=== PATIENT | female | born 1950 | race Two or more races ===

== ENCOUNTER → 2017-06-08 | Outpatient (CLI) | payer MEDICARE, OTHER ==
[~2017-06-08] MED LIST: LEV50T PO; NITR-48 PO; PAR20T PO
[2017-06-08 11:12] LABS: Basophils # (auto) 0 uL; Basophils % (auto) 0.6 % (0.0-2.0); Eosinophils # (auto) 0.1 uL; Eosinophils % (auto) 0.9 % (0.0-7.0); Hematocrit 39.9 % (36.0-46.0); Hemoglobin 13.1 g/dL (12.2-16.2); Lymphocytes # (auto) 3.8 uL; Lymphocytes % (auto) 48.2 % (10.0-50.0); Mean Corpuscular Hemoglobin 30.2 pg (28.0-32.0); Mean Corpuscular Hgb Conc. 32.8 g/dL (32.0-36.0); Mean Corpuscular Volume 91.9 fL (80.0-100.0); Mean Platelet Volume 7.6 fL (6.9-10.8); Monocytes # (auto) 0.5 uL; Monocytes % (auto) 5.9 % (0.0-12.0); Neutrophils # (auto) 3.5 uL; Neutrophils % (auto) 44.4 % (37.0-80.0); Nucleated Red Blood Cells % 0.2 %; Platelet Count (auto) 292 10^3/uL (140-450); Red Cell Distribution Width 14.7 % (11.8-14.3); White Blood Cell 7.9 10^3/uL (4.4-10.8)
[2017-06-08 11:21] LABS: Urine Bilirubin Negative (Negative); Urine Blood 1+ /uL (Negative); Urine Color Yellow (Yellow); Urine Glucose Normal (Normal); Urine Ketone Negative (Negative); Urine Mucus FEW (None Seen); Urine Nitrite Negative (Negative); Urine RBC 3 /hpf (0 - 4); Urine Squamous Epithelial Cell FEW /hpf (<5); Urine Urobilinogen Normal (Negative)
[2017-06-08 11:28] LABS: Albumin 3.8 g/dL (3.4-5.0); Bilirubin, Direct 0.1 mg/dL (0-0.2); Bilirubin, Total 0.5 mg/dL (0.2-1.0); Total Protein 7.3 g/dL (6.4-8.2)
== END | disposition home or self-care (01) ==
LOC: LAB 10:36
PROVIDERS: ATTEND Family Medicine
DX: F03.90 Unspecified dementia, unspecified severity, without behavioral disturbance, psychotic disturbance, mood disturbance, and anxiety (principal); F32.9 Major depressive disorder, single episode, unspecified; E78.4 Other hyperlipidemia; E55.9 Vitamin D deficiency, unspecified; Z86.19 Personal history of other infectious and parasitic diseases
CPT/HCPCS: 36415; 80061; 80076; 81001; 82306; 84443; 85025

== ENCOUNTER → 2017-12-11 | Outpatient (CLI) | payer MEDICARE, OTHER ==
[2017-12-11 10:27] LABS: Basophils # (auto) 0 uL; Basophils % (auto) 0.4 % (0.0-2.0); Eosinophils # (auto) 0.1 uL; Eosinophils % (auto) 0.8 % (0.0-7.0); Hematocrit 40.3 % (36.0-46.0); Hemoglobin 13.4 g/dL (12.2-16.2); Lymphocytes # (auto) 2.9 uL; Lymphocytes % (auto) 42.7 % (10.0-50.0); Mean Corpuscular Hemoglobin 30.6 pg (28.0-32.0); Mean Corpuscular Hgb Conc. 33.2 g/dL (32.0-36.0); Mean Corpuscular Volume 92.2 fL (80.0-100.0); Monocytes # (auto) 0.4 uL; Monocytes % (auto) 5.8 % (0.0-12.0); Neutrophils # (auto) 3.4 uL; Neutrophils % (auto) 50.3 % (37.0-80.0); Nucleated Red Blood Cells % 0.1 %; Platelet Count (auto) 256 10^3/uL (140-450); Red Blood Cells 4.37 10^6/uL (4.0-5.20); Red Cell Distribution Width 13.7 % (11.8-14.3); White Blood Cell 6.8 10^3/uL (4.4-10.8)
[2017-12-11 10:56] LABS: Urine Bacteria FEW /hpf (None Seen); Urine Blood 1+ /uL (Negative); Urine Mucus FEW (None Seen); Urine Specific Gravity 1.016 (1.001-1.035); Urine WBC 1 /hpf (0 - 5)
[2017-12-11 11:08] LABS: Albumin 3.9 g/dL (3.4-5.0); BUN/Creatinine Ratio 17.8; Bilirubin, Total 0.4 mg/dL (0.2-1.0); Calcium 9.1 mg/dL (8.5-10.1); Potassium 4.5 mmol/L (3.5-5.1); Total Protein 7.3 g/dL (6.4-8.2)
== END | disposition home or self-care (01) ==
LOC: LAB 09:49
PROVIDERS: ATTEND Family Medicine
DX: E03.9 Hypothyroidism, unspecified (principal); E78.4 Other hyperlipidemia; N18.2 Chronic kidney disease, stage 2 (mild)
CPT/HCPCS: 36415; 80053; 80061; 81001; 84443; 85025

== ENCOUNTER → 2018-07-25 | Outpatient (CLI) | payer MEDICARE, OTHER ==
[~2018-07-25] MED LIST changes: -NITR-48 PO; +NITR100C44 PO
== END | disposition home or self-care (01) ==
LOC: LAB 09:21
PROVIDERS: ATTEND Specialist
DX: R10.9 Unspecified abdominal pain (principal)
CPT/HCPCS: 36415; 82565; 84520

== ENCOUNTER → 2018-09-09 | Outpatient (CLI) | payer MEDICARE, OTHER ==
[2018-09-09 11:30] LABS: Urine Bacteria FEW /hpf (None Seen); Urine Blood 1+ /uL (Negative); Urine Mucus FEW (None Seen); Urine Specific Gravity 1.019 (1.001-1.035); Urine WBC 1 /hpf (0 - 5)
== END | disposition home or self-care (01) ==
LOC: LAB 10:46
PROVIDERS: ATTEND Obstetrics & Gynecology
DX: N39.0 Urinary tract infection, site not specified (principal)
CPT/HCPCS: 81001; 87086

== ENCOUNTER → 2019-04-21 | Outpatient (CLI) | payer MEDICARE, OTHER ==
[2019-04-21 10:57] LABS: Basophils # (auto) 0.1 uL; Basophils % (auto) 0.8 % (0.0-2.0); Eosinophils # (auto) 0.1 uL; Eosinophils % (auto) 1.8 % (0.0-7.0); Hematocrit 42.2 % (36.0-46.0); Lymphocytes # (auto) 2.8 uL; Lymphocytes % (auto) 38.8 % (10.0-50.0); Mean Corpuscular Hemoglobin 30.7 pg (28.0-32.0); Mean Corpuscular Hgb Conc. 33.1 g/dL (32.0-36.0); Mean Corpuscular Volume 92.8 fL (80.0-100.0); Monocytes # (auto) 0.5 uL; Monocytes % (auto) 6.5 % (0.0-12.0); Neutrophils # (auto) 3.8 uL; Neutrophils % (auto) 52.1 % (37.0-80.0); Platelet Count (auto) 269 10^3/uL (140-450); Red Blood Cells 4.54 10^6/uL (4.0-5.20); Red Cell Distribution Width 13.8 % (11.8-14.3); White Blood Cell 7.3 10^3/uL (4.4-10.8)
[2019-04-21 11:27] LABS: Albumin 3.6 g/dL (3.4-5.0); BUN/Creatinine Ratio 17.6; Calcium 9.1 mg/dL (8.5-10.1); Potassium 3.8 mmol/L (3.5-5.1)
[2019-04-21 11:32] LABS: Bilirubin, Total 0.5 mg/dL (0.2-1.0)
== END | disposition home or self-care (01) ==
LOC: LAB 10:12
PROVIDERS: ATTEND Family Medicine
DX: E55.9 Vitamin D deficiency, unspecified (principal); E03.9 Hypothyroidism, unspecified; F33.1 Major depressive disorder, recurrent, moderate; N39.41 Urge incontinence; M54.5 Low back pain
CPT/HCPCS: 36415; 80053; 80061; 82306; 84443; 85025

== ENCOUNTER → 2019-06-16 | Day surgery (SDC) | payer MEDICARE, OTHER ==
[2019-06-12 10:36] LABS: Basophils # (auto) 0.1 uL; Basophils % (auto) 0.7 % (0.0-2.0); Eosinophils # (auto) 0.1 uL; Hematocrit 40.2 % (36.0-46.0); Hemoglobin 13.3 g/dL (12.2-16.2); Lymphocytes # (auto) 3.1 uL; Lymphocytes % (auto) 36.9 % (10.0-50.0); Mean Corpuscular Hemoglobin 30.6 pg (28.0-32.0); Mean Corpuscular Hgb Conc. 33.1 g/dL (32.0-36.0); Mean Corpuscular Volume 92.6 fL (80.0-100.0); Monocytes # (auto) 0.5 uL; Monocytes % (auto) 6.5 % (0.0-12.0); Neutrophils # (auto) 4.6 uL; Neutrophils % (auto) 54.9 % (37.0-80.0); Nucleated Red Blood Cells % 0.1 %; Platelet Count (auto) 309 10^3/uL (140-450); Red Blood Cells 4.34 10^6/uL (4.0-5.20); Red Cell Distribution Width 14.5 % (11.8-14.3); White Blood Cell 8.3 10^3/uL (4.4-10.8)
[2019-06-12 11:03] LABS: Urine Bacteria NONE SEEN /hpf (None Seen); Urine Blood TRACE /uL (Negative); Urine Mucus FEW (None Seen); Urine Specific Gravity 1.018 (1.001-1.035); Urine WBC 1 /hpf (0 - 5)
[2019-06-12 11:06] LABS: INR 1.01 (0.9-1.15); Partial Thromboplastin Time 28.1 sec (23.64-32.05)
[2019-06-12 11:24] LABS: Albumin 3.8 g/dL (3.4-5.0); Calcium 8.6 mg/dL (8.5-10.1); Potassium 3.4 mmol/L (3.5-5.1)
[2019-06-12 11:28] LABS: Bilirubin, Total 0.5 mg/dL (0.2-1.0); Total Protein 7.5 g/dL (6.4-8.2)
[~2019-06-16] VITALS: Ht 167.6 cm; Wt 69.4 kg
[~2019-06-16] MED LIST changes: +ALPR0.5T7 PO; +ASPI-404 PO; +DexAMETHasone SOD PHOS 10MG/1ML VIAL INJ ONE; +HYDR-4833 PO; +HYDROmorphone HCL 2 MG/ML VL IV PRN; +KETOROLAC TROMETH 30 MG/ML 1ML VIAL IV ONE; +LABETALOL HCL 5 MG/ML 4ML SYRINGE IV PRN; -LEV50T PO; +LEVO125T7 PO; +MEPERIDINE HCL (25 MG/ML) 1ML VIAL ONE; +MIDAZOLAM HCL 1MG/1ML-2 ML VIAL IV PRN; +MIDAZOLAM HCL 1MG/1ML-2 ML VIAL ONE; +MORPHINE SULF INJ 2 MG/ML SYRINGE 1ML IV PRN; -NITR100C44 PO; +ONDANSETRON HCL 4 MG/2 ML VIAL IV PRN; +OXYB5TAB61 PO; +PRAV20TA3 PO; +PROPOFOL 10 MG/ML 20 ML IV ONE; +ePHEDrine SULFATE 50 MG/ML AMP IV PRN; +fentaNYL CITRATE 100 MCG/2 ML VL ONE
[2019-06-16 11:55] VITALS: BP 113/64
== END | disposition home or self-care (01) ==
LOC: GI 09:19
PROVIDERS: ATTEND Internal Medicine Gastroenterology
DX: Z12.11 Encounter for screening for malignant neoplasm of colon (principal); F32.9 Major depressive disorder, single episode, unspecified; Z87.891 Personal history of nicotine dependence; Z98.890 Other specified postprocedural states
CPT/HCPCS: 36415; 80053; 81001; 85025; 85610; 85730; G0121; J1100; J2175; J2250; J2704; J3010; J7030

== ENCOUNTER → 2019-12-09 | Outpatient (CLI) | payer MEDICARE, OTHER ==
[~2019-12-09] MED LIST changes: -ASPI-404 PO; +ASPI-543 PO; -DexAMETHasone SOD PHOS 10MG/1ML VIAL INJ ONE; -HYDROmorphone HCL 2 MG/ML VL IV PRN; -KETOROLAC TROMETH 30 MG/ML 1ML VIAL IV ONE; -LABETALOL HCL 5 MG/ML 4ML SYRINGE IV PRN; +LEVO100T8 PO; -MEPERIDINE HCL (25 MG/ML) 1ML VIAL ONE; -MIDAZOLAM HCL 1MG/1ML-2 ML VIAL IV PRN; -MIDAZOLAM HCL 1MG/1ML-2 ML VIAL ONE; -MORPHINE SULF INJ 2 MG/ML SYRINGE 1ML IV PRN; +OMEP20TA PO; -ONDANSETRON HCL 4 MG/2 ML VIAL IV PRN; -PROPOFOL 10 MG/ML 20 ML IV ONE; -ePHEDrine SULFATE 50 MG/ML AMP IV PRN; -fentaNYL CITRATE 100 MCG/2 ML VL ONE
[2019-12-09 09:50] LABS: Basophils # (auto) 0 10 ^3/uL (0-0.2); Basophils % (auto) 0.6 % (0.0-2.0); Eosinophils # (auto) 0.1 10 ^3/uL (0-0.8); Eosinophils % (auto) 1.7 % (0.0-7.0); Hematocrit 38.7 % (36.0-46.0); Hemoglobin 12.7 g/dL (12.2-16.2); Lymphocytes # (auto) 2.2 10 ^3/uL (0.4-5.4); Lymphocytes % (auto) 36.5 % (10.0-50.0); Mean Corpuscular Hemoglobin 30.4 pg (28.0-32.0); Mean Corpuscular Hgb Conc. 32.9 g/dL (32.0-36.0); Mean Corpuscular Volume 92.4 fL (80.0-100.0); Monocytes # (auto) 0.5 10 ^3/uL (0-1.3); Monocytes % (auto) 9.2 % (0.0-12.0); Neutrophils # (auto) 3.1 10 ^3/uL (1.6-8.6); Platelet Count (auto) 223 10^3/uL (140-450); Red Blood Cells 4.19 10^6/uL (4.0-5.20); Red Cell Distribution Width 13.6 % (11.8-14.3)
[2019-12-09 09:53] LABS: Urine Bacteria NONE SEEN /hpf (None Seen); Urine Blood 2+ /uL (Negative); Urine Mucus FEW (None Seen); Urine Specific Gravity 1.027 (1.001-1.035); Urine WBC 1 /hpf (0 - 5)
[2019-12-09 10:22] LABS: Albumin 3.7 g/dL (3.4-5.0); Potassium 3.9 mmol/L (3.5-5.1)
[2019-12-09 10:29] LABS: BUN/Creatinine Ratio 18.3; Bilirubin, Total 0.4 mg/dL (0.2-1.0); Calcium 8.8 mg/dL (8.5-10.1); Total Protein 6.9 g/dL (6.4-8.2)
[2019-12-11 08:23] LABS: Hepatitis B Surface Antibody Negative
[2019-12-11 08:58] LABS: Hepatitis A Total Antibody Positive
[2019-12-11 10:33] LABS: Hepatitis B Core Total AB Negative; Hepatitis B Surface Antigen Negative (Negative)
[2019-12-11 10:41] LABS: Hepatitis C Antibody Positive (Negative)
== END | disposition home or self-care (01) ==
LOC: LAB 09:18
PROVIDERS: ATTEND Family Medicine
DX: E78.49 Other hyperlipidemia (principal); E03.9 Hypothyroidism, unspecified; R32 Unspecified urinary incontinence; Z86.19 Personal history of other infectious and parasitic diseases
CPT/HCPCS: 36415; 80053; 80061; 81001; 84443; 85025; 86704; 86706; 86708; 86803; 87340

== ENCOUNTER → 2020-02-13 | Outpatient (CLI) | payer MEDICARE, OTHER ==
[2020-02-13 09:15] LABS: Basophils # (auto) 0 10 ^3/uL (0-0.2); Basophils % (auto) 0.4 % (0.0-2.0); Eosinophils # (auto) 0.1 10 ^3/uL (0-0.8); Eosinophils % (auto) 0.9 % (0.0-7.0); Hematocrit 40.8 % (36.0-46.0); Hemoglobin 13.3 g/dL (12.2-16.2); Lymphocytes # (auto) 2.6 10 ^3/uL (0.4-5.4); Lymphocytes % (auto) 41.7 % (10.0-50.0); Mean Corpuscular Hemoglobin 29.9 pg (28.0-32.0); Mean Corpuscular Hgb Conc. 32.6 g/dL (32.0-36.0); Mean Corpuscular Volume 91.9 fL (80.0-100.0); Monocytes # (auto) 0.4 10 ^3/uL (0-1.3); Monocytes % (auto) 6.3 % (0.0-12.0); Neutrophils # (auto) 3.2 10 ^3/uL (1.6-8.6); Neutrophils % (auto) 50.7 % (37.0-80.0); Nucleated Red Blood Cells % 0.1 %; Platelet Count (auto) 243 10^3/uL (140-450); Red Blood Cells 4.44 10^6/uL (4.0-5.20); Red Cell Distribution Width 13.7 % (11.8-14.3); White Blood Cell 6.2 10^3/uL (4.4-10.8)
[2020-02-13 09:33] LABS: INR 1.04 (0.9-1.15)
[2020-02-13 09:37] LABS: Albumin 3.8 g/dL (3.4-5.0); Calcium 8.8 mg/dL (8.5-10.1); Potassium 3.8 mmol/L (3.5-5.1)
[2020-02-13 09:40] LABS: BUN/Creatinine Ratio 19.3; Bilirubin, Total 0.5 mg/dL (0.2-1.0); Total Protein 7.1 g/dL (6.4-8.2)
== END | disposition home or self-care (01) ==
LOC: LAB 08:53
PROVIDERS: ATTEND Internal Medicine Gastroenterology
DX: B18.2 Chronic viral hepatitis C (principal); R10.13 Epigastric pain
CPT/HCPCS: 36415; 80053; 82105; 82140; 85025; 85610; 87902

== ENCOUNTER → 2020-03-01 | Outpatient (CLI) | payer MEDICARE, OTHER | END | disposition home or self-care (01) | LOC: LAB 09:04 | PROVIDERS: ATTEND Internal Medicine Gastroenterology | DX: R10.9 Unspecified abdominal pain (principal) ==

== ENCOUNTER 2020-03-24 12:29 | Day surgery (SDC) | payer MEDICARE, OTHER ==
[2020-03-18 11:19] LABS: Basophils # (auto) 0 10 ^3/uL (0-0.2); Basophils % (auto) 0.6 % (0.0-2.0); Eosinophils # (auto) 0 10 ^3/uL (0-0.8); Eosinophils % (auto) 0.7 % (0.0-7.0); Hematocrit 40.4 % (36.0-46.0); Hemoglobin 13.2 g/dL (12.2-16.2); Lymphocytes # (auto) 3.1 10 ^3/uL (0.4-5.4); Lymphocytes % (auto) 42.7 % (10.0-50.0); Mean Corpuscular Hgb Conc. 32.7 g/dL (32.0-36.0); Mean Corpuscular Volume 91.7 fL (80.0-100.0); Monocytes # (auto) 0.6 10 ^3/uL (0-1.3); Monocytes % (auto) 7.9 % (0.0-12.0); Neutrophils # (auto) 3.5 10 ^3/uL (1.6-8.6); Neutrophils % (auto) 48.1 % (37.0-80.0); Nucleated Red Blood Cells % 0.1 %; Platelet Count (auto) 228 10^3/uL (140-450); Red Blood Cells 4.41 10^6/uL (4.0-5.20); Red Cell Distribution Width 14.1 % (11.8-14.3); White Blood Cell 7.2 10^3/uL (4.4-10.8)
[2020-03-18 11:34] LABS: INR 0.99 (0.9-1.15); Partial Thromboplastin Time 26.2 sec (23.0-31.2)
[~2020-03-24] VITALS: Ht 167.6 cm; Wt 67.1 kg
[~2020-03-24 12:29] MED LIST changes: -ASPI-543 PO; -LEVO125T7 PO; +LIDOCAINE VISCOUS 2% 15ML UD ONE; +SODIUM CHLORIDE LOCK 10 ML ONE
[2020-03-24] MEDS: fentaNYL CITRATE 100 MCG/2 ML VL ONE ×2 (14:22→14:26)
[2020-03-24] MEDS: MIDAZOLAM HCL 5 MG/ML-1ML VIAL ONE ×3 (14:22→14:30)
[2020-03-24] MEDS: diphenhdrAMINE HCL 50 MG/1 ML VL ONE ×2 (14:24→14:27)
[2020-03-24 14:53] VITALS: BP 118/98
== END 2020-03-24 15:00 | disposition home or self-care (01) ==
LOC: SUR 12:29
PROVIDERS: ATTEND Internal Medicine Gastroenterology
DX: R10.13 Epigastric pain (principal); K29.50 Unspecified chronic gastritis without bleeding; D13.2 Benign neoplasm of duodenum; K31.9 Disease of stomach and duodenum, unspecified; K44.9 Diaphragmatic hernia without obstruction or gangrene; Z98.890 Other specified postprocedural states; Z79.899 Other long term (current) drug therapy; Z20.828 Contact with and (suspected) exposure to other viral communicable diseases
CPT/HCPCS: 36415; 43239; 85025; 85610; 85730; 88305; 88342; J1200; J2250; J3010; J7030; U0003; G0500

== ENCOUNTER 2020-05-07 13:25 | Emergency (ER) | payer MEDICARE, OTHER ==
[~2020-05-07] VITALS: Ht 167.6 cm; Wt 68.0 kg
[~2020-05-07 13:25] MED LIST changes: -LIDOCAINE VISCOUS 2% 15ML UD ONE; -SODIUM CHLORIDE LOCK 10 ML ONE
[2020-05-07 13:30] VITALS: BP 124/85
[2020-05-07] MEDS ORDERED: BENZOCAINE (DENTAL) 20 % SPRAY 60ML MT ONE (14:00)
[2020-05-07] MEDS ORDERED: cefTRIAXone SOD 1,000 MG VL IM ONE (14:00)
[2020-05-07] MEDS ORDERED: LIDOCAINE 1% HCL (LOCAL ANESTH.) INJ 20ML MDV IJ ONE (14:15)
== END 2020-05-07 14:44 | disposition home or self-care (01) ==
LOC: ER 13:25
DX: K04.7 Periapical abscess without sinus (principal); F17.210 Nicotine dependence, cigarettes, uncomplicated; Z88.6 Allergy status to analgesic agent
CPT/HCPCS: 96372; 99283; J0696; J2001

== ENCOUNTER 2020-05-14 13:18 | Emergency (ER) | payer MEDICARE, OTHER ==
[~2020-05-14] VITALS: Ht 167.6 cm; Wt 68.0 kg
[2020-05-14 16:55] VITALS: BP 119/73
== END 2020-05-14 17:10 | disposition home or self-care (01) ==
LOC: ER 13:18
DX: J32.0 Chronic maxillary sinusitis (principal); K04.7 Periapical abscess without sinus; F17.210 Nicotine dependence, cigarettes, uncomplicated; Z88.6 Allergy status to analgesic agent
CPT/HCPCS: 70486

== ENCOUNTER 2020-08-03 15:28 | Emergency (ER) | payer MEDICARE, OTHER ==
[~2020-08-03] VITALS: Ht 167.6 cm; Wt 65.8 kg
[2020-08-03 16:18] LABS: Urine Bacteria NONE SEEN /hpf (None Seen); Urine Blood 2+ /uL (Negative); Urine Mucus FEW (None Seen); Urine Specific Gravity 1.027 (1.001-1.035); Urine WBC 9 /hpf (0 - 5)
[2020-08-03 17:27] LABS: Basophils # (auto) 0 10 ^3/uL (0-0.2); Basophils % (auto) 0.7 % (0.0-2.0); Eosinophils # (auto) 0 10 ^3/uL (0-0.8); Eosinophils % (auto) 0.1 % (0.0-7.0); Hematocrit 40.1 % (36.0-46.0); Hemoglobin 13.5 g/dL (12.2-16.2); Lymphocytes # (auto) 2.3 10 ^3/uL (0.4-5.4); Lymphocytes % (auto) 40.5 % (10.0-50.0); Mean Corpuscular Hemoglobin 31.2 pg (28.0-32.0); Mean Corpuscular Hgb Conc. 33.8 g/dL (32.0-36.0); Mean Corpuscular Volume 92.3 fL (80.0-100.0); Monocytes # (auto) 0.8 10 ^3/uL (0-1.3); Monocytes % (auto) 14.4 % (0.0-12.0); Neutrophils # (auto) 2.5 10 ^3/uL (1.6-8.6); Neutrophils % (auto) 44.3 % (37.0-80.0); Nucleated Red Blood Cells % 0.1 %; Red Blood Cells 4.34 10^6/uL (4.0-5.20); Red Cell Distribution Width 13.7 % (11.8-14.3); White Blood Cell 5.6 10^3/uL (4.4-10.8)
[2020-08-03 17:54] LABS: Potassium 3.9 mmol/L (3.5-5.1)
[2020-08-03 18:06] LABS: Albumin 3.8 g/dL (3.4-5.0); BUN/Creatinine Ratio 18.9; Bilirubin, Total 0.4 mg/dL (0.2-1.0); CRP High Sensitivity 1.67 mg/dL (< 0.3); Calcium 8.8 mg/dL (8.5-10.1); Total Protein 7.5 g/dL (6.4-8.2)
[2020-08-03 19:07] VITALS: BP 125/89
== END 2020-08-03 19:40 | disposition home or self-care (01) ==
LOC: ER 15:28
DX: N39.0 Urinary tract infection, site not specified (principal); R50.9 Fever, unspecified; Z20.828 Contact with and (suspected) exposure to other viral communicable diseases; R05 Cough
CPT/HCPCS: 36415; 71045; 76705; 80053; 81001; 82728; 85025; 85379; 86141; 87426; 99285; C9803; U0003

== ENCOUNTER → 2020-10-12 | Day surgery (SDC) | payer MEDICARE, OTHER ==
[2020-10-08 10:17] LABS: Basophils # (auto) 0 10 ^3/uL (0-0.2); Basophils % (auto) 0.5 % (0.0-2.0); Eosinophils # (auto) 0.1 10 ^3/uL (0-0.8); Eosinophils % (auto) 0.9 % (0.0-7.0); Hematocrit 38.5 % (36.0-46.0); Hemoglobin 12.8 g/dL (12.2-16.2); Lymphocytes # (auto) 2.6 10 ^3/uL (0.4-5.4); Lymphocytes % (auto) 40.9 % (10.0-50.0); Mean Corpuscular Hgb Conc. 33.3 g/dL (32.0-36.0); Monocytes # (auto) 0.4 10 ^3/uL (0-1.3); Monocytes % (auto) 7.1 % (0.0-12.0); Neutrophils # (auto) 3.2 10 ^3/uL (1.6-8.6); Neutrophils % (auto) 50.6 % (37.0-80.0); Nucleated Red Blood Cells % 0.1 %; Platelet Count (auto) 242 10^3/uL (140-450); Red Blood Cells 4.14 10^6/uL (4.0-5.20); Red Cell Distribution Width 14.1 % (11.8-14.3); White Blood Cell 6.3 10^3/uL (4.4-10.8)
[2020-10-08 10:30] LABS: INR 0.94 (0.9-1.15); Partial Thromboplastin Time 25.6 sec (23.0-31.2)
[~2020-10-12] VITALS: Ht 167.6 cm; Wt 68.0 kg
[~2020-10-12] MED LIST changes: +LIDOCAINE VISCOUS 2% 15ML UD ONE; +diphenhdrAMINE HCL 50 MG/1 ML VL ONE
[2020-10-12] MEDS: fentaNYL CITRATE 100 MCG/2 ML VL ONE ×2 (09:50→09:57)
[2020-10-12] MEDS: MIDAZOLAM HCL 5 MG/ML-1ML VIAL ONE ×2 (09:50→09:57)
[2020-10-12 10:30] VITALS: BP 142/72
== END | disposition home or self-care (01) ==
LOC: GI 08:41
PROVIDERS: ATTEND Internal Medicine Gastroenterology
DX: R10.13 Epigastric pain (principal); K31.7 Polyp of stomach and duodenum; K29.70 Gastritis, unspecified, without bleeding; K31.9 Disease of stomach and duodenum, unspecified; K31.89 Other diseases of stomach and duodenum; F32.9 Major depressive disorder, single episode, unspecified; F41.9 Anxiety disorder, unspecified; B96.81 Helicobacter pylori [H. pylori] as the cause of diseases classified elsewhere; B96.89 Other specified bacterial agents as the cause of diseases classified elsewhere; Z88.5 Allergy status to narcotic agent; Z20.822 Contact with and (suspected) exposure to COVID-19; Z98.890 Other specified postprocedural states; Z88.1 Allergy status to other antibiotic agents; Z86.16 Personal history of COVID-19; Z79.899 Other long term (current) drug therapy; Z88.8 Allergy status to other drugs, medicaments and biological substances
CPT/HCPCS: 36415; 43239; 43251; 85025; 85610; 85730; J1200; J2250; J3010; U0003; G0500

== ENCOUNTER → 2021-02-08 | Outpatient (CLI) | payer MEDICARE, OTHER ==
[~2021-02-08] MED LIST changes: -LIDOCAINE VISCOUS 2% 15ML UD ONE; -diphenhdrAMINE HCL 50 MG/1 ML VL ONE
[2021-02-08 14:12] LABS: Basophils # (auto) 0.1 10 ^3/uL (0-0.2); Basophils % (auto) 0.8 % (0.0-2.0); Eosinophils # (auto) 0.1 10 ^3/uL (0-0.8); Eosinophils % (auto) 1.6 % (0.0-7.0); Hemoglobin 13.5 g/dL (12.2-16.2); Lymphocytes # (auto) 3.1 10 ^3/uL (0.4-5.4); Lymphocytes % (auto) 38.4 % (10.0-50.0); Mean Corpuscular Hemoglobin 30.3 pg (28.0-32.0); Mean Corpuscular Hgb Conc. 32.8 g/dL (32.0-36.0); Mean Corpuscular Volume 92.5 fL (80.0-100.0); Monocytes # (auto) 0.5 10 ^3/uL (0-1.3); Neutrophils # (auto) 4.4 10 ^3/uL (1.6-8.6); Neutrophils % (auto) 53.2 % (37.0-80.0); Red Blood Cells 4.44 10^6/uL (4.0-5.20); Red Cell Distribution Width 14.4 % (11.8-14.3); White Blood Cell 8.2 10^3/uL (4.4-10.8)
[2021-02-08 14:22] LABS: Urine Bacteria NONE SEEN /hpf (None Seen); Urine Blood 1+ /uL (Negative); Urine Mucus FEW (None Seen); Urine Specific Gravity 1.025 (1.001-1.035); Urine WBC <1 /hpf (0 - 5)
[2021-02-08 14:36] LABS: Albumin 4.2 g/dL (3.4-5.0); Calcium 9.5 mg/dL (8.5-10.1); Potassium 3.8 mmol/L (3.5-5.1)
[2021-02-08 14:42] LABS: BUN/Creatinine Ratio 20.8; Bilirubin, Total 0.8 mg/dL (0.2-1.0); Total Protein 7.8 g/dL (6.4-8.2)
== END | disposition home or self-care (01) ==
LOC: LAB 13:32
PROVIDERS: ATTEND Family Medicine
DX: E78.2 Mixed hyperlipidemia (principal); K21.9 Gastro-esophageal reflux disease without esophagitis; E03.9 Hypothyroidism, unspecified; R32 Unspecified urinary incontinence; F33.1 Major depressive disorder, recurrent, moderate; F41.9 Anxiety disorder, unspecified; Z83.3 Family history of diabetes mellitus; Z79.899 Other long term (current) drug therapy
CPT/HCPCS: 36415; 80053; 80061; 81001; 82306; 83036; 84443; 85025

== ENCOUNTER 2021-02-11 07:43 | Day surgery (SDC) | payer MEDICARE, OTHER ==
[2021-02-08 13:24] LABS: Basophils # (auto) 0.1 10 ^3/uL (0-0.2); Basophils % (auto) 0.6 % (0.0-2.0); Eosinophils # (auto) 0.1 10 ^3/uL (0-0.8); Eosinophils % (auto) 1.6 % (0.0-7.0); Hematocrit 41.2 % (36.0-46.0); Hemoglobin 13.5 g/dL (12.2-16.2); Lymphocytes # (auto) 3.3 10 ^3/uL (0.4-5.4); Lymphocytes % (auto) 38.8 % (10.0-50.0); Mean Corpuscular Hemoglobin 30.2 pg (28.0-32.0); Mean Corpuscular Hgb Conc. 32.7 g/dL (32.0-36.0); Mean Corpuscular Volume 92.5 fL (80.0-100.0); Monocytes # (auto) 0.5 10 ^3/uL (0-1.3); Monocytes % (auto) 6.4 % (0.0-12.0); Neutrophils # (auto) 4.5 10 ^3/uL (1.6-8.6); Neutrophils % (auto) 52.6 % (37.0-80.0); Nucleated Red Blood Cells % 0.1 %; Red Blood Cells 4.46 10^6/uL (4.0-5.20); White Blood Cell 8.5 10^3/uL (4.4-10.8)
[2021-02-08 13:32] LABS: Urine Bacteria FEW /hpf (None Seen); Urine Blood 1+ /uL (Negative); Urine Mucus FEW (None Seen); Urine Specific Gravity 1.024 (1.001-1.035); Urine WBC <1 /hpf (0 - 5)
[2021-02-08 13:40] LABS: INR 0.99 (0.9-1.15); Partial Thromboplastin Time 26.8 sec (23.0-31.2)
[2021-02-08 13:52] LABS: Potassium 3.9 mmol/L (3.5-5.1)
[2021-02-08 14:01] LABS: Albumin 4.1 g/dL (3.4-5.0); BUN/Creatinine Ratio 19.4; Bilirubin, Total 0.7 mg/dL (0.2-1.0); Total Protein 7.6 g/dL (6.4-8.2)
[~2021-02-11] VITALS: Ht 167.6 cm; Wt 70.3 kg
[~2021-02-11 07:43] MED LIST changes: -HYDR-4833 PO
[2021-02-11] MEDS ORDERED: ceFAZolin 1GM/50ML 50 ML IV ONE (08:34)
[2021-02-11] MEDS ORDERED: fentaNYL CITRATE 100 MCG/2 ML VL ONE (10:31)
[2021-02-11] MEDS ORDERED: MIDAZOLAM HCL 1MG/1ML-2 ML VIAL ONE (10:31)
[2021-02-11] MEDS ORDERED: PROPOFOL 10 MG/ML 20 ML IV ONE (11:02)
[2021-02-11] MEDS ORDERED: GLYCOPYRROLATE 0.2 MG/ML 1ML VIAL ONE (11:02)
[2021-02-11] MEDS ORDERED: LIDOCAINE 2% (LOCAL ANESTH.) PF 5ml SDV ONE (11:02)
[2021-02-11] MEDS ORDERED: ONDANSETRON HCL 4 MG/2 ML VIAL ONE (11:02)
[2021-02-11] MEDS ORDERED: LACTATED RINGER'S 1,000 ML IV SCH (11:15)
[2021-02-11] MEDS ORDERED: ONDANSETRON HCL 4 MG/2 ML VIAL IV PRN ×2 (11:15→11:30)
[2021-02-11] MEDS ORDERED: HYDROmorphone HCL 2 MG/ML VL IV PRN (11:30)
[2021-02-11 12:10] VITALS: BP 132/77
== END 2021-02-11 12:30 | disposition home or self-care (01) ==
LOC: SUR 07:43
PROVIDERS: ATTEND Specialist
DX: N95.0 Postmenopausal bleeding (principal); N84.1 Polyp of cervix uteri; N89.8 Other specified noninflammatory disorders of vagina; E03.9 Hypothyroidism, unspecified; E78.5 Hyperlipidemia, unspecified; K75.89 Other specified inflammatory liver diseases; F41.9 Anxiety disorder, unspecified; F32.9 Major depressive disorder, single episode, unspecified; Z88.1 Allergy status to other antibiotic agents; Z88.5 Allergy status to narcotic agent; Z88.8 Allergy status to other drugs, medicaments and biological substances; Z20.822 Contact with and (suspected) exposure to COVID-19
CPT/HCPCS: 36415; 58558; 80053; 81001; 81025; 84702; 85025; 85610; 85730; 86850; 86900; 86901; 86920; J0690; J2001; J2250; J2405; J2704; J3010; U0003

== ENCOUNTER → 2021-09-16 | Outpatient (CLI) | payer MEDICARE, OTHER ==
[~2021-09-16] MED LIST changes: +LIDO5DIS21 TOP
[2021-09-16 13:42] LABS: Basophils # (auto) 0 10 ^3/uL (0-0.2); Basophils % (auto) 0.4 % (0.0-2.0); Eosinophils # (auto) 0.1 10 ^3/uL (0-0.8); Eosinophils % (auto) 1.4 % (0.0-7.0); Hematocrit 39.5 % (36.0-46.0); Lymphocytes % (auto) 45.8 % (10.0-50.0); Mean Corpuscular Hemoglobin 30.9 pg (28.0-32.0); Mean Corpuscular Hgb Conc. 32.8 g/dL (32.0-36.0); Mean Corpuscular Volume 94.3 fL (80.0-100.0); Monocytes # (auto) 0.4 10 ^3/uL (0-1.3); Monocytes % (auto) 6.8 % (0.0-12.0); Neutrophils % (auto) 45.6 % (37.0-80.0); Red Blood Cells 4.19 10^6/uL (4.0-5.20); Red Cell Distribution Width 13.2 % (11.8-14.3); White Blood Cell 6.5 10^3/uL (4.4-10.8)
[2021-09-16 14:33] LABS: Potassium 4.3 mmol/L (3.5-5.1)
[2021-09-16 14:45] LABS: Albumin 3.7 g/dL (3.4-5.0); Bilirubin, Total 0.7 mg/dL (0.2-1.0); Calcium 8.9 mg/dL (8.5-10.1); Total Protein 6.8 g/dL (6.4-8.2)
== END | disposition home or self-care (01) ==
LOC: LAB 08:50
PROVIDERS: ATTEND Student in an Organized Health Care Education/Training Program
DX: E03.9 Hypothyroidism, unspecified (principal); E78.2 Mixed hyperlipidemia
CPT/HCPCS: 36415; 80053; 80061; 83036; 84443; 85025

== ENCOUNTER 2021-10-18 19:34 | Emergency (ER) | payer MEDICARE, OTHER ==
[~2021-10-18] VITALS: Ht 167.6 cm; Wt 68.0 kg
[~2021-10-18 19:34] MED LIST changes: -LIDO5DIS21 TOP
[2021-10-18] MEDS ORDERED: IODIXANOL 320MG/ML 100ML BTL IV ONE (20:31)
[2021-10-18 21:00] VITALS: BP 103/59
[2021-10-18 21:00] LABS: Basophils # (auto) 0.2 10 ^3/uL (0-0.2); Basophils % (auto) 1.3 % (0.0-2.0); Eosinophils # (auto) 0.1 10 ^3/uL (0-0.8); Hematocrit 34.2 % (36.0-46.0); Hemoglobin 11.4 g/dL (12.2-16.2); Lymphocytes # (auto) 2.8 10 ^3/uL (0.4-5.4); Lymphocytes % (auto) 21.7 % (10.0-50.0); Mean Corpuscular Hemoglobin 30.8 pg (28.0-32.0); Mean Corpuscular Hgb Conc. 33.4 g/dL (32.0-36.0); Mean Corpuscular Volume 92.2 fL (80.0-100.0); Monocytes # (auto) 0.7 10 ^3/uL (0-1.3); Monocytes % (auto) 5.5 % (0.0-12.0); Neutrophils # (auto) 9.2 10 ^3/uL (1.6-8.6); Neutrophils % (auto) 70.5 % (37.0-80.0); Red Blood Cells 3.71 10^6/uL (4.0-5.20); Red Cell Distribution Width 13.6 % (11.8-14.3); White Blood Cell 13.1 10^3/uL (4.4-10.8)
[2021-10-18 21:16] LABS: Alanine Aminotransferase 16 U/L (13-56); Albumin 3.3 g/dL (3.4-5.0); Anion Gap 6 (5-15); Aspartate Aminotransferase 23 U/L (15-37); BUN/Creatinine Ratio 13.3; Blood Urea Nitrogen 12 mg/dL (7-18); Calcium 8.2 mg/dL (8.5-10.1); Carbon Dioxide 27 mmol/L (21-32); Chloride 109 mmol/L (98-107); GFR African American 80 mL/min; GFR Non-African American 66 mL/min; Glucose 110 mg/dL (74-106); Potassium 3.7 mmol/L (3.5-5.1); Sodium 142 mmol/L (136-145)
[2021-10-18 21:19] LABS: Alkaline Phosphatase 98 U/L (45-117); Bilirubin, Total 0.2 mg/dL (0.2-1.0); Total Protein 6.2 g/dL (6.4-8.2)
[2021-10-18] MEDS ORDERED: LIDO5DIS21 TOP (21:38)
== END 2021-10-18 22:35 | disposition home or self-care (01) ==
LOC: EDBD 19:34 → ER 19:37
DX: R55 Syncope and collapse (principal); R07.81 Pleurodynia; F17.210 Nicotine dependence, cigarettes, uncomplicated; Z88.1 Allergy status to other antibiotic agents
CPT/HCPCS: 36415; 74177; 80053; 84484; 85025; 93005; 99285; Q9967

== ENCOUNTER → 2021-12-12 | Outpatient (CLI) | payer MEDICARE, OTHER ==
[~2021-12-12] MED LIST changes: +LIDO5DIS21 TOP
[2021-12-12 07:33] LABS: Basophils # (auto) 0 10 ^3/uL (0-0.2); Basophils % (auto) 0.5 % (0.0-2.0); Eosinophils # (auto) 0.1 10 ^3/uL (0-0.8); Eosinophils % (auto) 1.2 % (0.0-7.0); Hematocrit 37.1 % (36.0-46.0); Hemoglobin 12.7 g/dL (12.2-16.2); Lymphocytes # (auto) 3.8 10 ^3/uL (0.4-5.4); Lymphocytes % (auto) 48.3 % (10.0-50.0); Mean Corpuscular Hemoglobin 31.2 pg (28.0-32.0); Mean Corpuscular Hgb Conc. 34.2 g/dL (32.0-36.0); Mean Corpuscular Volume 91.3 fL (80.0-100.0); Monocytes # (auto) 0.5 10 ^3/uL (0-1.3); Monocytes % (auto) 6.6 % (0.0-12.0); Neutrophils # (auto) 3.4 10 ^3/uL (1.6-8.6); Neutrophils % (auto) 43.4 % (37.0-80.0); Red Blood Cells 4.06 10^6/uL (4.0-5.20); Red Cell Distribution Width 13.8 % (11.8-14.3)
[2021-12-12 07:51] LABS: Urine Bacteria FEW /hpf (None Seen); Urine Blood 2+ /uL (Negative); Urine Hyaline Cast FEW /lpf (0 - 2); Urine Mucus FEW (None Seen); Urine Specific Gravity 1.022 (1.001-1.035); Urine WBC 13 /hpf (0 - 5)
[2021-12-12 08:10] LABS: Potassium 4.4 mmol/L (3.5-5.1)
[2021-12-12 08:17] LABS: Albumin 3.6 g/dL (3.4-5.0); Bilirubin, Total 0.7 mg/dL (0.2-1.0); Calcium 8.9 mg/dL (8.5-10.1); Total Protein 6.8 g/dL (6.4-8.2)
== END | disposition home or self-care (01) ==
LOC: LAB 07:08
PROVIDERS: ATTEND Student in an Organized Health Care Education/Training Program
DX: D64.9 Anemia, unspecified (principal); I95.9 Hypotension, unspecified; E03.9 Hypothyroidism, unspecified; R79.89 Other specified abnormal findings of blood chemistry; N39.0 Urinary tract infection, site not specified
CPT/HCPCS: 36415; 80053; 81001; 82533; 84443; 85025; 87086

== ENCOUNTER → 2022-06-23 | Day surgery (SDC) | payer OTHER ==
[2022-06-21 11:22] LABS: Basophils # (auto) 0.1 10 ^3/uL (0-0.2); Basophils % (auto) 0.7 % (0.0-2.0); Eosinophils # (auto) 0.1 10 ^3/uL (0-0.8); Eosinophils % (auto) 1.1 % (0.0-7.0); Hematocrit 40.3 % (36.0-46.0); Hemoglobin 13.1 g/dL (12.2-16.2); Lymphocytes # (auto) 3.3 10 ^3/uL (0.4-5.4); Lymphocytes % (auto) 45.3 % (10.0-50.0); Mean Corpuscular Hemoglobin 29.2 pg (28.0-32.0); Mean Corpuscular Hgb Conc. 32.4 g/dL (32.0-36.0); Monocytes # (auto) 0.5 10 ^3/uL (0-1.3); Monocytes % (auto) 6.6 % (0.0-12.0); Neutrophils # (auto) 3.4 10 ^3/uL (1.6-8.6); Neutrophils % (auto) 46.3 % (37.0-80.0); Nucleated Red Blood Cells % 0.1 %; Red Blood Cells 4.47 10^6/uL (4.0-5.20); White Blood Cell 7.4 10^3/uL (4.4-10.8)
[2022-06-21 11:41] LABS: INR 0.99 (0.9-1.15); Partial Thromboplastin Time 27.3 sec (24.6-33.4)
[2022-06-21 12:40] LABS: Calcium 9.5 mg/dL (8.5-10.1); Potassium 3.9 mmol/L (3.5-5.1)
[2022-06-21 12:44] LABS: BUN/Creatinine Ratio 17.4
[2022-06-21 12:46] LABS: Bilirubin, Total 0.6 mg/dL (0.2-1.0); Total Protein 7.4 g/dL (6.4-8.2)
[~2022-06-23] VITALS: Ht 167.6 cm; Wt 61.2 kg
[~2022-06-23] MED LIST changes: -ALPR0.5T7 PO; -LIDO5DIS21 TOP; +LIDOCAINE VISCOUS 2% 15ML UD ONE; -PAR20T PO; +SERT25TA14 PO; +SODIUM CHLORIDE LOCK 10 ML ONE; +diphenhdrAMINE HCL 50 MG/1 ML VL ONE
[2022-06-23] MEDS: MIDAZOLAM HCL 5 MG/ML-1ML VIAL ONE ×2 (14:25→14:28)
[2022-06-23] MEDS: fentaNYL CITRATE 100 MCG/2 ML VL ONE ×2 (14:25→14:28)
[2022-06-23 15:25] VITALS: BP 111/67
== END | disposition home or self-care (01) ==
LOC: GI 13:27
PROVIDERS: ATTEND Internal Medicine Gastroenterology
DX: K21.9 Gastro-esophageal reflux disease without esophagitis (principal); K44.9 Diaphragmatic hernia without obstruction or gangrene; K29.50 Unspecified chronic gastritis without bleeding; F32.A Depression, unspecified; E03.9 Hypothyroidism, unspecified; Z88.8 Allergy status to other drugs, medicaments and biological substances; Z98.890 Other specified postprocedural states; Z20.822 Contact with and (suspected) exposure to COVID-19; F41.9 Anxiety disorder, unspecified; Z79.890 Hormone replacement therapy
CPT/HCPCS: 36415; 43239; 80053; 85025; 85610; 85730; 88305; 88342; J1200; J2250; J3010; J7030; U0003

== ENCOUNTER 2022-11-21 10:45 | Emergency (ER) | payer OTHER ==
[~2022-11-21] VITALS: Ht 167.6 cm; Wt 60.0 kg
[~2022-11-21 10:45] MED LIST changes: -CIPR-173 PO; -IOHEXOL 350 MG/ML 100ML IJ ONE
[2022-11-21] MEDS ORDERED: ASPirin 81 mg TAB PO ONE (11:00)
[2022-11-21 11:09] LABS: Basophils # (auto) 0 10 ^3/uL (0-0.2); Basophils % (auto) 0.5 % (0.0-2.0); Eosinophils # (auto) 0 10 ^3/uL (0-0.8); Eosinophils % (auto) 0.2 % (0.0-7.0); Hemoglobin 13.4 g/dL (12.2-16.2); Mean Corpuscular Hemoglobin 29.6 pg (28.0-32.0); Mean Corpuscular Hgb Conc. 32.7 g/dL (32.0-36.0); Mean Corpuscular Volume 90.7 fL (80.0-100.0); Monocytes # (auto) 0.6 10 ^3/uL (0-1.3); Monocytes % (auto) 6.6 % (0.0-12.0); Neutrophils # (auto) 5.9 10 ^3/uL (1.6-8.6); Neutrophils % (auto) 69.7 % (37.0-80.0); Nucleated Red Blood Cells % 0.1 %; Red Blood Cells 4.52 10^6/uL (4.0-5.20); Red Cell Distribution Width 13.6 % (11.8-14.3); White Blood Cell 8.5 10^3/uL (4.4-10.8)
[2022-11-21 11:26] LABS: Potassium 4.1 mmol/L (3.5-5.1)
[2022-11-21 11:33] LABS: Albumin 4.1 g/dL (3.4-5.0); BUN/Creatinine Ratio 15.6 (10.0-20.0); Bilirubin, Total 0.6 mg/dL (0.2-1.0); Calcium 8.7 mg/dL (8.5-10.1); Magnesium 2.3 mg/dL (1.6-2.6); Total Protein 6.9 g/dL (6.4-8.2)
[2022-11-21 11:54] LABS: Urine Bacteria NONE SEEN /hpf (None Seen); Urine Blood 2+ /uL (Negative); Urine Mucus FEW (None Seen); Urine Specific Gravity 1.024 (1.001-1.035); Urine WBC 1 /hpf (0 - 5)
[2022-11-21] MEDS ORDERED: CIPR-173 PO (15:15)
[2022-11-21 15:35] VITALS: BP 117/70
== END 2022-11-21 15:30 | disposition home or self-care (01) ==
LOC: ER 10:45
DX: R07.89 Other chest pain (principal); E78.5 Hyperlipidemia, unspecified; F17.210 Nicotine dependence, cigarettes, uncomplicated; Z88.5 Allergy status to narcotic agent; Z88.8 Allergy status to other drugs, medicaments and biological substances; Z79.899 Other long term (current) drug therapy; Z98.890 Other specified postprocedural states; Z20.822 Contact with and (suspected) exposure to COVID-19
CPT/HCPCS: 36415; 71046; 71275; 80053; 81001; 83735; 84484; 85025; 85379; 87426

== ENCOUNTER → 2022-11-21 | Outpatient (CLI) | payer OTHER ==
[~2022-11-21] MED LIST changes: +CIPR-173 PO; +IOHEXOL 350 MG/ML 100ML IJ ONE; -LIDOCAINE VISCOUS 2% 15ML UD ONE; -SODIUM CHLORIDE LOCK 10 ML ONE; -diphenhdrAMINE HCL 50 MG/1 ML VL ONE
[2022-11-21 12:21] LABS: Basophils # (auto) 0 10 ^3/uL (0-0.2); Basophils % (auto) 0.4 % (0.0-2.0); Eosinophils # (auto) 0 10 ^3/uL (0-0.8); Eosinophils % (auto) 0.2 % (0.0-7.0); Hematocrit 39.4 % (36.0-46.0); Hemoglobin 12.9 g/dL (12.2-16.2); Lymphocytes # (auto) 2.1 10 ^3/uL (0.4-5.4); Lymphocytes % (auto) 27.2 % (10.0-50.0); Mean Corpuscular Hemoglobin 29.6 pg (28.0-32.0); Mean Corpuscular Hgb Conc. 32.7 g/dL (32.0-36.0); Mean Corpuscular Volume 90.6 fL (80.0-100.0); Monocytes # (auto) 0.5 10 ^3/uL (0-1.3); Monocytes % (auto) 6.6 % (0.0-12.0); Neutrophils # (auto) 5.1 10 ^3/uL (1.6-8.6); Neutrophils % (auto) 65.6 % (37.0-80.0); Red Blood Cells 4.35 10^6/uL (4.0-5.20); White Blood Cell 7.7 10^3/uL (4.4-10.8)
[2022-11-21 12:44] LABS: Albumin 3.9 g/dL (3.4-5.0); Calcium 8.6 mg/dL (8.5-10.1); Potassium 3.7 mmol/L (3.5-5.1)
[2022-11-21 13:00] LABS: BUN/Creatinine Ratio 17.3 (10.0-20.0); Bilirubin, Total 0.6 mg/dL (0.2-1.0); Total Protein 6.8 g/dL (6.4-8.2)
== END | disposition home or self-care (01) ==
LOC: LAB 12:03
PROVIDERS: ATTEND Student in an Organized Health Care Education/Training Program
DX: E03.9 Hypothyroidism, unspecified (principal); E86.0 Dehydration
CPT/HCPCS: 36415; 80053; 84443; 85025; Q9967

== ENCOUNTER → 2023-07-26 | Outpatient (CLI) | payer OTHER ==
[~2023-07-26] MED LIST changes: +CIPR-173 PO; +OXYB5TAB10 PO; -OXYB5TAB61 PO; -SERT25TA14 PO; +SERT25TA28 PO
[2023-07-26 10:36] LABS: Alanine Aminotransferase 13 U/L (7-40); Albumin 4.3 g/dL (3.2-4.8); Alkaline Phosphatase 80 U/L (46-116); Anion Gap 6 (5-15); Aspartate Aminotransferase 18 U/L (13-40); Bilirubin, Total 0.6 mg/dL (0.2-1.0); Blood Urea Nitrogen 16 mg/dL (9-23); Calcium 9.3 mg/dL (8.5-10.1); Carbon Dioxide 28 mmol/L (20-30); Chloride 109 mmol/L (98-107); Cholesterol 137 mg/dL (< 200); Glucose 91 mg/dL (74-106); HDL Cholesterol 64 mg/dL (40-59); LDL Cholesterol 61 mg/dL (< 100); Potassium 4.1 mmol/L (3.5-5.1); Sodium 143 mmol/L (136-145); Total Protein 6.5 g/dL (5.7-8.2); Triglycerides 68 mg/dL (< 150)
== END | disposition home or self-care (01) ==
LOC: LAB 09:12
PROVIDERS: ATTEND Student in an Organized Health Care Education/Training Program
DX: B18.2 Chronic viral hepatitis C (principal); E03.9 Hypothyroidism, unspecified; I70.0 Atherosclerosis of aorta; E78.2 Mixed hyperlipidemia
CPT/HCPCS: 36415; 80053; 80061; 84439; 84443

== ENCOUNTER → 2024-07-31 | Outpatient (CLI) | payer OTHER ==
[~2024-07-31] MED LIST changes: -OXYB5TAB10 PO; +OXYB5TAB14 PO
[2024-07-31 15:01] LABS: T3 Total 1.28 ng/mL (0.60-1.81)
[2024-07-31 15:03] LABS: Free T4 (Free Thyroxine) 1.41 ng/dL (0.89-1.76)
== END | disposition home or self-care (01) ==
LOC: LAB 14:16
PROVIDERS: ATTEND Nurse Practitioner
DX: E03.9 Hypothyroidism, unspecified (principal)
CPT/HCPCS: 36415; 84439; 84443; 84480; 84481

== ENCOUNTER 2024-09-08 18:51 | Emergency (ER) | payer OTHER ==
[~2024-09-08] VITALS: Ht 165.1 cm; Wt 50.0 kg
[2024-09-08 18:55] VITALS: BP 125/82; PULSE 90; O2SAT 96
--- NOTE | 2024-09-08 19:33 | DVH ---
CHEST RADIOGRAPH Indication: cough Technique: Single frontal view of the chest was obtained Comparison: CHEST PORTABLE on DOS: 08/03/20 FINDINGS: Lines and Tubes: None Lungs: No focal consolidation. Mild hyperinflation of the lungs. Pleura: No effusion. No pneumothorax. Cardiomediastinal contours: Unremarkable Bones: No acute osseous abnormality. 8 mm sclerotic density over the left lateral humeral head which may be from overlying structures. IMPRESSION: No acute cardiopulmonary disease. Mild hyperinflation of the lungs.
[2024-09-08 21:52] LABS: Rapid Influenza A Negative (Negative); Rapid Influenza B Negative (Negative)
[2024-09-08 22:10] LABS: COVID19 ANTIGEN SOFIA FIA POSITIVE (NEGATIVE)
[2024-09-08] MEDS ORDERED: ZOFR4T PO (22:20)
--- NOTE | 2024-09-08 22:20 | ED.PDOC ---
History of Present Illness HPI Comments 74-year-old female brought in by EMS. Patient complaining of body pain all day. Went to the urgent Care was prescribed pain medications he was not able take her pain medications due to her pain and nausea. Upon arrival patient does have 101 fever. Patient states yesterday she was started with a dry cough continued today. 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 Family History Family History (Other): SLE Social History Smoker: Cigarettes, Less Than 1 Pack/Day Alcohol: Rarely Drugs: Denies Drug Use Lives In: Home Constitutional: Fever EENTM: No Symptoms Reported Respiratory: No Symptoms Reported Cardiovascular: No Symptoms Reported Gastrointestinal: No Symptoms Reported Genitourinary: No Symptoms Reported Neurological: No Symptoms Reported Musculoskeletal: No Symptoms Reported Integumentary: No Symptoms Reported Allergic/Immunocompromised: others Hematologic/Lymphatic: No Symptoms Reported Endocrine: No Symptoms Reported Psychiatric: No symptoms Reported All Other Systems: Reviewed and Negative Physical Exam General Appearance: No Apparent Distress, Normal HEENT: Normal ENT Inspection, Pharynx Normal, TMs Normal Neck: Full Range of Motion, Non-Tender, Normal, Normal Inspection Respiratory: Chest Non-Tender, Lungs Clear, No Accessory Muscle Use, No Respiratory Distress, Normal Breath Sounds Cardiovascular: No Edema, No JVD, No Murmur, No Gallop, Normal Peripheral Pulses, Regular Rate/Rhythm Breast Exam: Deferred Gastrointestinal: No Organomegaly, Non Tender, No Pulsatile Mass, Normal Bowel Sounds, Soft Genitalia: Deferred Pelvic: Deferred Rectal: Deferred Extremities: No calf tenderness, Normal capillary refill, Normal inspection, Normal range of motion, Non-tender, No pedal edema Musculoskeletal : Apperance: Normal Neurologic: 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 Was a procedure done?: No Fever Differential Dx Differential Diagnosis: Pneumonia, Pneumonitis, Viral Syndrome, Pharyngitis X-Ray, Labs, Meds, VS Vital Signs Date Time Temp Pulse Resp B/P (MAP) Pulse Ox O2 Delivery O2 Flow Rate FiO2 09/08/24 18:55 101.3 90 18 125/82 (96) 96 Lab Test 09/08/24 20:40 Range/Units Influenza Type A Antigen Negative Negative Influenza Type B Antigen Negative Negative SARS-CoV-2 Antigen (Rapid) Positive NEGATIVE X-Ray, Labs, Meds, VS Comment Imaging: X-rays and CT scans were reviewed and interpreted by this provider, imaging shows no fractures and no pathological disease. Pending radiology review. Laboratory: Labs reviewed and interpreted by this provider. Positive COVID-19 Patient has prior medical visits reviewed. Med reconciliation performed Vital signs reviewed Patient advised to continue taking medications she was prescribed at the urgent care. Patient will be sent home with he was Zofran for nausea. Time of 1ST Reevaluation: 22:19 Reevaluation 1ST: Improved Patient Education/Counseling: Diagnosis, Treatment, Need For Follow Up (Patient advised to follow-up in the emergency room in the next 24 to 48 hours if symptoms do not improve. Advised follow-up with PCP in the next 3 to 5 days. Patient verbalized understanding. ) Family Education/Counseling: Diagnosis, Treatment Departure 1 Departure Time of Disposition: 22:19 Impression: Primary Impression: COVID-19 Disposition: 01 HOME / SELF CARE / HOMELESS Condition: Fair e-Prescriptions Ondansetron Odt 4MG Tab (ZOFRAN PO) 4 Mg Tb 4 MG PO TID PRN, #20 TAB ODT TAB-DISSOLVE IN MOUTH, THEN SWALLOW Prov: TIM JIMENEZ 09/08/24 Discharged With: Self Critical Care Note Critical Care Time?: No Stability Stability form required: No Heart Score Heart Score: Heart Score Response (Comments) Value History N/A 0 EKG N/A 0 Age N/A 0 Risk Factors N/A 0 Troponin N/A 0 Total 0 TIM JIMENEZ Sep 08, 2024 22:20
[2024-09-08] MEDS: KETOROLAC TROMETH 30 MG/ML 1ML VIAL IM ONE (22:45)
[2024-09-08 22:50] VITALS: RESP 18
== END 2024-09-08 23:00 | disposition home or self-care (01) ==
LOC: EDBD 18:51 → ER 18:51 → EDSEX 18:51 → ER 23:00
DX: U07.1 COVID-19 (principal); E78.5 Hyperlipidemia, unspecified; F17.210 Nicotine dependence, cigarettes, uncomplicated
CPT/HCPCS: 36415; 71045; 87426; 87804; 96372; 99284; J1885

== ENCOUNTER 2024-12-19 10:55 | Emergency (ER) | payer OTHER ==
[~2024-12-19] VITALS: Ht 167.6 cm; Wt 62.4 kg
[~2024-12-19 10:55] MED LIST changes: +ZOFR4T PO
--- NOTE | 2024-12-19 11:08 | ED.PDOC ---
History of Present Illness HPI Comments 74 year old female presents to the ED with a chief complaint of hypotension onset today (12/19/24). Patient states she saw PCP this morning, BP was 80/40, was sent to ED. She has been experiencing generalized weakness for the past 2 weeks, as well as constipation, gained about 5 lbs in the last 2 weeks. PMHx hypothyroidism, HLD. Denies chest pain, cough, cold, congestion, fever, chills, nausea, vomiting, diarrhea, headache, dizziness. No other symptoms or modifying factors present at this time. Time Seen by MD: 11:00 Primary Care Provider: Frandy Reviewed Notes: Medications, Allergies Allergies: Coded Allergies: Clindamycin (Verified Allergy, Unknown, 08/05/20) Codeine (Verified Allergy, Unknown, 05/07/20) Niacinamide (Verified Allergy, Unknown, 03/18/20) Home Meds Active Scripts Ondansetron Odt 4MG Tab (ZOFRAN PO) 4 Mg Tb, 4 MG PO TID PRN, #20 TAB ODT TAB-DISSOLVE IN MOUTH, THEN SWALLOW Prov:TIM JIMENEZ 09/08/24 Ciprofloxacin Hcl (Cipro) 500 Mg Tab, 1 TAB PO BID, #14 TAB Prov:JANNIE SIMS MD 11/21/22 Reported Medications Sertraline Hcl (Sertraline Hcl) 25 Mg Tab, 25 MG PO DAILY, TAB 06/21/22 Omeprazole (Gnp Omeprazole) 20 Mg Tab, 1 TAB PO DAILY PRN for FOR STOMACH DISTRESS, #90 TAB 1 Refill 03/18/20 Levothyroxine Sodium (Levothyroxine Sodium) 100 Mcg Tab, 100 MCG PO QAM for 30 Days, MCG 03/18/20 Oxybutynin Chloride (Oxybutynin Chloride) 5 Mg Tab, 0.5 TAB PO DAILY, TAB 06/12/19 Pravastatin Sodium (PRAVACHOL TABLET) 20 Mg Tb, 40 MG PO DAILY, TAB 06/12/19 Information Source: Patient Mode of Arrival: Ambulatory Severity: Moderate Timing: Weeks Duration: Since onset Prehospital treatment: None Past Medical History PAST MEDICAL HISTORY: High Lipids, Thyroid Surgical History: Denies all surgeries 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 Family History Family History (Other): SLE Social History Smoker: Cigarettes, Less Than 1 Pack/Day Alcohol: Rarely Drugs: Denies Drug Use Lives In: Home Constitutional: reports: weakness; denies: chills, diaphoresis, fatigue, fever, malaise, sweats, others EENTM: denies: blurred vision, double vision, ear bleeding, ear discharge, ear drainage, ear pain, ear ringing, eye pain, eye redness, hearing loss, mouth pain, mouth swelling, nasal discharge, nose bleeding, nose congestion, nose pain, photophobia, tearing, throat pain, throat swelling, voice changes, others Respiratory: denies: cough, hemoptysis, orthopnea, SOB at rest, shortness of breath, SOB with excertion, stridor, wheezing, others Cardiovascular: reports: others (Hypotension); denies: chest pain, dizzy spells, diaphoresis, Dyspnea on exertion, edema, irregular heart beat, left arm pain, lightheadedness, palpitations, PND, syncope Gastrointestinal: reports: constipated; denies: abdomen distended, abdominal pain, blood streaked bowels, diarrhea, dysphagia, difficulty swallowing, hematemesis, melena, nausea, poor appetite, poor fluid intake, rectal bleeding, rectal pain, vomiting, others Genitourinary: denies: abnormal vagina bleeding, burning, dyspareunia, dysuria, flank pain, frequency, hematuria, incontinence, pain, , vagina discharge, urgency, others Neurological: reports: weakness; denies: dizziness, fainting, headache, left sided numbness, left sided weakness, numbness, paresthesia, pre-existing deficit, right sided numbness, right sided weakness, seizure, speech problems, tingling, tremors, others Musculoskeletal: denies: back pain, gout, joint pain, joint swelling, muscle pain, muscle stiffness, neck pain, others Integumetry: denies: bruises, change in color, change in hair/nails, dryness, laceration, lesions, lumps, rash, wounds, others Allergic/Immunocompromised: denies: Difficulty Healing, Frequent Infections, Hives, Itching, others Hematologic/Lymphatic: denies: anemia, blood clots, easy bleeding, easy bruising, swollen glands, others Endocrine: reports: unexplained weight gain (5 lbs ); denies: excessive hunger, excessive sweating, excessive thirst, excessive urination, flushing, intolerance to cold, intolerance to heat, unexplained weight loss, others Psychiatric: denies: anxiety, bipolar disorder, depression, hopeless, panic disorder, schizophrenia, sleepless, suicidal, others All Other Systems: Reviewed and Negative Physical Exam General Appearance: No Apparent Distress, Normal HEENT: Normal ENT Inspection, Pharynx Normal, TMs Normal Neck: Full Range of Motion, Non-Tender, Normal, Normal Inspection Respiratory: Chest Non-Tender, Lungs Clear, No Accessory Muscle Use, No Respiratory Distress, Normal Breath Sounds Cardiovascular: No Edema, No JVD, No Murmur, No Gallop, Normal Peripheral Pulses, Regular Rate/Rhythm Breast Exam: Deferred Gastrointestinal: No Organomegaly, Non Tender, No Pulsatile Mass, Normal Bowel Sounds, Soft Genitalia: Deferred Pelvic: Deferred Rectal: Deferred Extremities: No calf tenderness, Normal capillary refill, Normal inspection, Normal range of motion, Non-tender, No pedal edema Musculoskeletal : Apperance: Normal Neurologic: Alert, skid man II-XII nml as Tested, No Motor Deficits, Normal Affect, Normal Mood, No Sensory Deficits Cerebellar Function: Normal Reflexes: Normal Skin: Dry, Normal Color, Warm Lymphatic: No Adenopathy Was a procedure done? Was a procedure done?: No Differential Dx Considerations may include: hypothyroidism, heart failure, hypoglycemia, hypotension, dehydration, renal failure, failure to thrive, arrhythmias X-Ray, Labs, Meds, VS Vital Signs Date Time Temp Pulse Resp B/P (MAP) Pulse Ox O2 Delivery O2 Flow Rate FiO2 12/19/24 13:55 55 16 95 Room Air* 0 21 12/19/24 13:54 97.5 55 16 110/61 (77) 95 97.5 12/19/24 12:49 98.3 56 14 111/56 (74) 96 98.3 12/19/24 11:30 58 12/19/24 11:19 64 19 12/19/24 11:19 98.8 64 19 97/57 (70) 96 98.8 Lab Test 12/19/24 11:20 Range/Units White Blood Count 7.0 4.4-10.8 10^3/uL Red Blood Count 4.17 4.0-5.20 10^6/uL Hemoglobin 12.7 12.2-16.2 g/dL Hematocrit 37.7 36.0-46.0 % Mean Corpuscular Volume 90.4 80.0-100.0 fL Mean Corpuscular Hemoglobin 30.5 28.0-32.0 pg Mean Corpuscular Hemoglobin Concent 33.7 32.0-36.0 g/dL Red Cell Distribution Width 13.7 11.8-14.3 % Platelet Count 237 140-450 10^3/uL Mean Platelet Volume 8.4 6.9-10.8 fL Neutrophils (%) (Auto) 45.0 37.0-80.0 % Lymphocytes (%) (Auto) 48.5 10.0-50.0 % Monocytes (%) (Auto) 5.5 0.0-12.0 % Eosinophils (%) (Auto) 0.6 0.0-7.0 % Basophils (%) (Auto) 0.4 0.0-2.0 % Neutrophils # (Auto) 3.1 1.6-8.6 10 ^3/uL Lymphocytes # (Auto) 3.4 0.4-5.4 10 ^3/uL Monocytes # (Auto) 0.4 0-1.3 10 ^3/uL Eosinophils # (Auto) 0 0-0.8 10 ^3/uL Basophils # (Auto) 0 0-0.2 10 ^3/uL Nucleated Red Blood Cells 0.1 % Sodium Level 142 136-145 mmol/L Potassium Level 4.0 3.5-5.1 mmol/L Chloride Level 109 H 98-107 mmol/L Carbon Dioxide Level 27 20-31 mmol/L Anion Gap 6 5-15 Blood Urea Nitrogen 18 9-23 mg/dL Creatinine 0.84 0.550-1.02 mg/dL Glomerular Filtration Rate Calc 74 >90 mL/min BUN/Creatinine Ratio 21.4 H 10.0-20.0 Serum Glucose 95 74-106 mg/dL Calcium Level 9.8 8.7-10.4 mg/dL Total Bilirubin 0.5 0.2-1.0 mg/dL Aspartate Amino Transferase (AST) 17 13-40 U/L Alanine Aminotransferase (ALT) 11 7-40 U/L Alkaline Phosphatase 86 46-116 U/L Troponin I High Sensitivity 4 </=34 ng/L Total Protein 6.6 5.7-8.2 g/dL Albumin 4.6 3.2-4.8 g/dL Thyroid Stimulating Hormone (TSH) 0.03 L 0.55-4.78 uIU/mL Free Thyroxine (T4) Calculated 1.55 0.89-1.76 ng/dL Current Medications Medications (Trade) Dose Ordered Sig/[place] Route Start Time Stop Time Status Last Admin Sodium Chloride 500 ml @ 500 mls/hr Q1H ONCE IV 12/19/24 11:15 12/19/24 12:14 DC 12/19/24 13:57 [place] [id number] Ph: [phone] DIAGNOSTIC IMAGING Diagnostic Imaging Report : [id number] Signed PATIENT: GARRISON HANKSIAACCT: [id number] UNIT: [id number] : 1950 LOC: ER ROOM / BED: / AGE / SEX: 74 / F ADM STATUS: REG ER SERVICE 1104 ORDERING PHYSICIAN: JAYY WINTER MD PROCEDURE(s): CXRP - CHEST PORTABLE REASON: weakness ORDER NUMBER(s): [id number], ACCESSION NUMBER(s): [id number] CHEST RADIOGRAPH Indication: weakness Technique: Single frontal view of the chest was obtained COMPARISON: CHEST PORTABLE on DOS: 08/03/20 FINDINGS: Lines and Tubes: None Lungs: Clear Pleura: No effusion. No pneumothorax. Cardiomediastinal contours: Unremarkable Bones: Unremarkable IMPRESSION: No acute disease. ATED BY: CHRISTOPHER JUAREZ MD DICTATED DATE/TIME: 12/19/241206 SIGNED BY: CHRISTOPHER JUAREZ MD SIGNED DATE/TIME: 12/19/241206 CC: Time of 1ST Reevaluation: 11:30 Reevaluation 1ST: Unchanged Time of 2ND Reevaluation: 15:33 Reevaluation 2ND: Improved Patient Education/Counseling: Diagnosis, Treatment, Prognosis, Need For Follow Up Family Education/Counseling: No Family Present Additional Information Previous visits reviewed: 2021 for syncope, 2022 atypical CP The following tests were ordered, and results were reviewed by me: CBC, CMP, TROP, EKG, XY CHEST, TSH, FREE T4 I reviewed and agreed with the following test results read by other providers: XY CHEST, I discussed treatment and results with medical personnel and: patient Comprehensive systems review obtained and negative except for what is stated in the HPI. pt is asymptomatic and i reviewed the result with her. she is not on bet ablocker, but has her HR in the 50s. however, she is not symptomatic now, so this is not likely the cause of her symptoms. her HR has been stable. i will let her PCP know, she this can be followed up. i also reviewed her medications, and she is not on beta blockers. pt will see Dr Brambila on sunday at 2pm in [address] Departure 1 Departure Time of Disposition: 15:40 Impression: Primary Impression: Fatigue Qualified Codes: R53.83 - Other fatigue Additional Impression: Bradycardia Disposition: HOME / SELF CARE / HOMELESS Condition: Good Additional Instructions: follow up with Dr Brambila on at 2pm in [address] Discharged With: Self Critical Care Note Critical Care Time?: Yes Stability Stability form required: No I personally scribed for JAYY WINTER MD ([email or web address]) on 12/19/24 at 11:08. Electronically submitted by Citlaly Obregon ([email or web address]). I personally scribed for JAYY WINTER MD ([email or web address]) on 12/19/24 at 11:09. Electronically submitted by Citlaly Obregon ([email or web address]). I personally scribed for JAYY WINTER MD ([email or web address]) on 12/19/24 at 12:21. Electronically submitted by Citlaly Obregon ([email or web address]). JAYY WINTER MD December 19, 2024 11:08
--- NOTE | 2024-12-19 11:32 | ECG ---
[facility] Test Date: 2024-12-19 Test Time: 11:30:39 Pat Name: BRANDEN HANKS Department: ED Room: Gender: F [employer] Set Up Operator: STEVEN : 1950 Requested By: JAYY WINTER Order Number: [id number] Reading MD: Babar Rea Measurements Intervals [place] Rate: 58 P: -71 ND: 132 QRS: 81 QRSD: 68 T: 73 QT: 428 QTc: 421 Interpretive Statements Ectopic atrial rhythm Borderline right axis deviation Low voltage, precordial leads Electronically Signed On 12-21-2024 22:18:38 PDT by Babar Rae Please click the below link to view image of tracing.
[2024-12-19 11:38] LABS: Basophils # (auto) 0 10 ^3/uL (0-0.2); Basophils % (auto) 0.4 % (0.0-2.0); Eosinophils # (auto) 0 10 ^3/uL (0-0.8); Eosinophils % (auto) 0.6 % (0.0-7.0); Hematocrit 37.7 % (36.0-46.0); Hemoglobin 12.7 g/dL (12.2-16.2); Lymphocytes # (auto) 3.4 10 ^3/uL (0.4-5.4); Lymphocytes % (auto) 48.5 % (10.0-50.0); Mean Corpuscular Hemoglobin 30.5 pg (28.0-32.0); Mean Corpuscular Hgb Conc. 33.7 g/dL (32.0-36.0); Mean Corpuscular Volume 90.4 fL (80.0-100.0); Monocytes # (auto) 0.4 10 ^3/uL (0-1.3); Monocytes % (auto) 5.5 % (0.0-12.0); Neutrophils # (auto) 3.1 10 ^3/uL (1.6-8.6); Nucleated Red Blood Cells % 0.1 %; Platelet Count (auto) 237 10^3/uL (140-450); Red Blood Cells 4.17 10^6/uL (4.0-5.20); Red Cell Distribution Width 13.7 % (11.8-14.3)
--- NOTE | 2024-12-19 12:09 | DVH ---
CHEST RADIOGRAPH Indication: weakness Technique: Single frontal view of the chest was obtained COMPARISON: CHEST PORTABLE on DOS: 08/03/20 FINDINGS: Lines and Tubes: None Lungs: Clear Pleura: No effusion. No pneumothorax. Cardiomediastinal contours: Unremarkable Bones: Unremarkable IMPRESSION: No acute disease.
[2024-12-19 12:50] LABS: Alanine Aminotransferase 11 U/L (7-40); Albumin 4.6 g/dL (3.2-4.8); Alkaline Phosphatase 86 U/L (46-116); Anion Gap 6 (5-15); Aspartate Aminotransferase 17 U/L (13-40); BUN/Creatinine Ratio 21.4 (10.0-20.0); Blood Urea Nitrogen 18 mg/dL (9-23); Calcium 9.8 mg/dL (8.7-10.4); Carbon Dioxide 27 mmol/L (20-31); Glucose 95 mg/dL (74-106); Sodium 142 mmol/L (136-145); Total Protein 6.6 g/dL (5.7-8.2)
[2024-12-19 12:51] LABS: Bilirubin, Total 0.5 mg/dL (0.2-1.0); Chloride 109 mmol/L (98-107)
[2024-12-19 13:55] VITALS: PULSE 55; RESP 16; O2SAT 95
[2024-12-19] MEDS: SODIUM CHLORIDE 0.9% 500 ML IV ONE (13:57)
[2024-12-19] MEDS: ACETAMINOPHEN 325 MG TAB PO ONE (15:51)
[2024-12-19 15:54] VITALS: BP 112/72; PULSE 59; RESP 16; TEMP 97.6; O2SAT 95
== END 2024-12-19 16:01 | disposition home or self-care (01) ==
LOC: ER 10:55
DX: R00.1 Bradycardia, unspecified (principal); R53.83 Other fatigue; I95.9 Hypotension, unspecified; R53.1 Weakness; E78.5 Hyperlipidemia, unspecified; E03.9 Hypothyroidism, unspecified; F17.210 Nicotine dependence, cigarettes, uncomplicated; Z79.899 Other long term (current) drug therapy; Z88.1 Allergy status to other antibiotic agents; Z88.5 Allergy status to narcotic agent
CPT/HCPCS: 36415; 71045; 80053; 84439; 84443; 84484; 85025; 93005; 96360; 99285; J7040

== ENCOUNTER 2025-01-30 09:51 | Outpatient (CLI) | payer OTHER ==
--- NOTE | 2025-02-02 14:08 | DVHSR ---
APPROVED REPORT EXAM: Two-dimensional and M-mode echocardiogram with Doppler and color Doppler. DIMENSIONS LVDd3.6 (3.8-5.7cm)LA (2D)3.2 (1.9-4.0cm)Aortic Root3.3 (2.0-3.7cm) LVDs2.4 (2.5-4.0cm)LA (MM) (1.9-4.0cm)Aortic Cusp Exc1.4 (1.5-2.0cm) EF (%) 63.0 (55-70%)Rt. Atrium3.6 (1.9-4.0cm)Asc. Aorta cm IVSd0.8 (0.7-1.1cm)RV (D) (1.8-2.4cm) PWd1.0 (0.7-1.1cm) Mitral Valve MitralMitral Stenosis E wave1.10m/sMV Mean GR.mmHg A wave0.80m/sMV Peak GR.mmHg E/A ratio1.42D MVAcm2 Aortic Valve Aortic ValveAortic Stenosis V10.90m/Faith Mean GR.3mmHg V21.20m/Faith Peak GR.6mmHg LVOT Diameter1.9 (1.8-2.4cm)Doppler AVA2.13cm2 Tricuspid Valve TR Velocity2.60m/s [id number] LEFT VENTRICLE The left ventricle is normal size. The left ventricle is normal in structure and function. The Ejection Fraction is within normal limits. RIGHT VENTRICLE The right ventricle is normal size. ATRIA The left atrial size is normal. The right atrium size is normal. The interatrial septum is intact with no evidence for an atrial septal defect. MITRAL VALVE The mitral valve is normal in structure and function. There is no mitral valve regurgitation noted. PULMONIC VALVE The pulmonic valve is not well visualized. TRICUSPID VALVE The tricuspid valve is grossly normal. AORTIC VALVE The aortic valve opens well. No aortic regurgitation is present. GREAT VESSELS The aortic root is normal size. PERICARDIAL EFFUSION There is no pericardial effusion. Conclusion EF 55%
== END 2025-01-30 17:00 | disposition home or self-care (01) ==
LOC: Rad HDHVI 09:51
PROVIDERS: ATTEND Internal Medicine Cardiovascular Disease
DX: I10 Essential (primary) hypertension (principal)
CPT/HCPCS: 93306

== ENCOUNTER 2025-02-04 13:33 | Outpatient (CLI) | payer OTHER ==
[~2025-02-04] VITALS: Ht 167.6 cm; Wt 62.6 kg
== END 2025-02-04 17:00 | disposition home or self-care (01) ==
LOC: Rad HDHVI 13:33
PROVIDERS: ATTEND Internal Medicine Cardiovascular Disease
DX: I49.1 Atrial premature depolarization (principal); R00.0 Tachycardia, unspecified; R00.1 Bradycardia, unspecified; E78.2 Mixed hyperlipidemia; R07.9 Chest pain, unspecified; E06.3 Autoimmune thyroiditis; J84.10 Pulmonary fibrosis, unspecified
CPT/HCPCS: 78452; 93017; A9500; 96374

== ENCOUNTER → 2025-02-19 | Outpatient (CLI) | payer OTHER ==
[2025-02-19 12:38] LABS: Hematocrit 39.5 % (36.0-46.0); Hemoglobin 13.1 g/dL (12.2-16.2); Mean Corpuscular Hemoglobin 29.8 pg (28.0-32.0); Mean Corpuscular Volume 89.8 fL (80.0-100.0); Nucleated Red Blood Cells % 0.1 %
[2025-02-19 13:01] LABS: Alanine Aminotransferase 11 U/L (7-40); Albumin 4.6 g/dL (3.2-4.8); Alkaline Phosphatase 81 U/L (46-116); Anion Gap 8 (5-15); BUN/Creatinine Ratio 18.3 (10.0-20.0); Blood Urea Nitrogen 17 mg/dL (9-23); Calcium 9.9 mg/dL (8.7-10.4); Carbon Dioxide 28 mmol/L (20-31); Cholesterol 196 mg/dL (< 200); Glucose 91 mg/dL (74-106); Potassium 4.0 mmol/L (3.5-5.1); Sodium 144 mmol/L (136-145); Total Protein 6.8 g/dL (5.7-8.2); Triglycerides 106 mg/dL (< 150)
[2025-02-19 13:02] LABS: Bilirubin, Total 0.7 mg/dL (0.2-1.0)
[2025-02-19 13:03] LABS: Chloride 108 mmol/L (98-107); HDL Cholesterol 63 mg/dL (40-59)
[2025-02-19 13:07] LABS: Free T4 (Free Thyroxine) 1.33 ng/dL (0.89-1.76)
[2025-02-20 11:09] LABS: Hepatitis B Surface Antigen Negative (Negative)
[2025-02-20 11:18] LABS: Hepatitis C Antibody Positive (Negative)
[2025-02-20 11:20] LABS: Hepatitis A Total Antibody Positive (Negative)
== END | disposition home or self-care (01) ==
LOC: LAB 12:00
PROVIDERS: ATTEND Licensed Practical Nurse
DX: I10 Essential (primary) hypertension (principal); E78.2 Mixed hyperlipidemia; E03.9 Hypothyroidism, unspecified; R53.0 Neoplastic (malignant) related fatigue; Z12.11 Encounter for screening for malignant neoplasm of colon; E55.9 Vitamin D deficiency, unspecified
CPT/HCPCS: 36415; 80053; 80061; 82043; 82274; 82306; 82607; 82746; 84439; 84443; 85025; 86704; 86706; 86708; 86803; 87340

== ENCOUNTER 2025-03-18 10:50 | Outpatient (CLI) | payer OTHER | END 2025-03-18 17:00 | disposition home or self-care (01) | LOC: LAB 10:50 | PROVIDERS: ATTEND Internal Medicine Gastroenterology | DX: B18.2 Chronic viral hepatitis C (principal) | CPT/HCPCS: 87902 ==

== ENCOUNTER → 2025-04-02 | Outpatient (CLI) | payer OTHER ==
[2025-04-02 09:21] LABS: Hematocrit 37.6 % (36.0-46.0); Hemoglobin 12.7 g/dL (12.2-16.2); Mean Corpuscular Hemoglobin 30.8 pg (28.0-32.0); Mean Corpuscular Volume 91.3 fL (80.0-100.0); Nucleated Red Blood Cells % 0.0 %
[2025-04-02 10:03] LABS: Albumin 4.5 g/dL (3.2-4.8); Alkaline Phosphatase 86 U/L (46-116); Anion Gap 9 (5-15); BUN/Creatinine Ratio 17.3 (10.0-20.0); Blood Urea Nitrogen 14 mg/dL (9-23); Calcium 9.7 mg/dL (8.7-10.4); Carbon Dioxide 29 mmol/L (20-31); Cholesterol 192 mg/dL (< 200); Glucose 88 mg/dL (74-106); Potassium 4.0 mmol/L (3.5-5.1); Total Protein 7.2 g/dL (5.7-8.2); Triglycerides 105 mg/dL (< 150)
[2025-04-02 10:04] LABS: Bilirubin, Total 0.8 mg/dL (0.2-1.0)
[2025-04-02 10:06] LABS: Alanine Aminotransferase 9 U/L (7-40); Chloride 108 mmol/L (98-107); HDL Cholesterol 68 mg/dL (40-59); Sodium 146 mmol/L (136-145)
[2025-04-02 11:07] LABS: Free T4 (Free Thyroxine) 1.35 ng/dL (0.89-1.76)
[2025-04-02 11:08] LABS: Free T3 2.96 pg/mL (2.3-4.2)
== END | disposition home or self-care (01) ==
LOC: LAB 08:46
PROVIDERS: ATTEND Licensed Practical Nurse
DX: I10 Essential (primary) hypertension (principal); E78.2 Mixed hyperlipidemia; E06.3 Autoimmune thyroiditis
CPT/HCPCS: 36415; 80053; 80061; 82043; 83036; 84439; 84443; 84481; 85025; 87902

== ENCOUNTER 2025-04-06 10:56 | Outpatient (CLI) | payer OTHER ==
[2025-04-06 12:01] LABS: Free T3 2.84 pg/mL (2.3-4.2); Free T4 (Free Thyroxine) 1.39 ng/dL (0.89-1.76)
== END 2025-04-06 17:00 | disposition home or self-care (01) ==
LOC: LAB 10:56
PROVIDERS: ATTEND Licensed Practical Nurse
DX: E03.9 Hypothyroidism, unspecified (principal)
CPT/HCPCS: 36415; 84439; 84443; 84481

== ENCOUNTER 2025-06-08 10:30 | Outpatient (CLI) | payer OTHER ==
[2025-06-08] MEDS ORDERED: ALBUTEROL SULF 2.5 MG/0.5ML(0.5%) NEB SOLN ONE (10:38)
== END 2025-06-08 17:00 | disposition home or self-care (01) ==
LOC: RT 10:30
PROVIDERS: ATTEND Internal Medicine Pulmonary Disease
DX: J44.9 Chronic obstructive pulmonary disease, unspecified (principal); R06.00 Dyspnea, unspecified; R05.9 Cough, unspecified; Z87.891 Personal history of nicotine dependence
CPT/HCPCS: 94060; 94618; 94729

== ENCOUNTER 2025-06-16 10:55 | Outpatient (CLI) | payer OTHER ==
[2025-06-16 11:48] LABS: Free T3 3.35 pg/mL (2.3-4.2)
[2025-06-16 11:51] LABS: Free T4 (Free Thyroxine) 0.66 ng/dL (0.89-1.76)
== END 2025-06-16 17:00 | disposition home or self-care (01) ==
LOC: LAB 10:55
PROVIDERS: ATTEND Internal Medicine Endocrinology, Diabetes & Metabolism
DX: E03.9 Hypothyroidism, unspecified (principal)
CPT/HCPCS: 36415; 84439; 84443; 84481